=== PATIENT | female | born 1965 | race Hispanic/Latino ===

== ENCOUNTER 2021-10-20 14:38 | Observation (INO) | payer MEDICARE ==
[~2021-10-20] VITALS: Ht 157.5 cm; Wt 91.6 kg
[~2021-10-20 14:38] MED LIST: AMLODIPINE BESY10 MG PO; EFFEXOR XR75 MG PO; GABAPENTIN300 MG PO; GLIPIZIDE5 MG PO; KOMBIGLYZE XR1 EAC2 PO; LASIX20 MG PO; LEVEMIR100 UNIT/1 SQ; LIPITOR10 MG PO; LOSARTAN POTASS25 MG PO; LYRICA50 MG PO; METFORMIN HCL500 M2 PO; NORCO 10-325 T1 EACH PO; NORTRIPTYLINE H10 MG PO; PAIN COMPOUND; ULTRAM 50MG50 MG PO; VICTOZA 3-0.6 MG/0.1 INJ; ZOVIRAX400 MG
[2021-10-20 15:22] LABS: BASOPHILS % 0.2 % (0.0-1.0); EOSINOPHILS % 0.3 % (0.0-6.0); HEMATOCRIT 33.6 % (34.2-44.1); HEMOGLOBIN 10.4 g/dL (12.0-16.0); LYMPHOCYTES # (AUTO) 1.4 (1.0-3.2); LYMPHOCYTES % 13.1 % (18.0-39.1); MEAN CORPUSCULAR HEMOGLOBIN 30.1 pg (28-32); MEAN CORPUSCULAR VOLUME 97.4 fL (81-99); MONOCYTES # (AUTO) 0.4 (0.2-0.8); MONOCYTES % 3.5 % (4.4-11.3); NEUTROPHILS # (AUTO) 8.6 (2.1-6.9); NEUTROPHILS % 82.5 % (38.7-80.0); PLATELET COUNT 262 x10e3/uL (140-360); RED BLOOD COUNT 3.45 x10e6/uL (3.6-5.1); RED CELL DISTRIBUTION WIDTH 13.4 % (11.7-14.4)
[2021-10-20 15:26] LABS: CLARITY,URINE HAZY (CLEAR); COLOR,URINE BROWN (YELLOW)
[2021-10-20 15:27] LABS: KETONES,URINE TRACE (NEGATIVE); LEUKOCYTE ESTERASE ,URINE TRACE (NEGATIVE); NITRITE,URINE NEGATIVE (NEGATIVE); PROTEIN,URINE DIPSTICK >=300 (NEGATIVE); URINE UROBILINOGEN 1 mg/dL (0.2 - 1)
[2021-10-20 15:28] LABS: AMORPHOUS SEDIMENT,URINE FEW (FEW); BACTERIA,URINE MODERATE /HPF; EPITHELIAL CELLS,URINE FEW /LPF; MUCUS,URINE MODERATE (RARE); RBC,URINE >50 /HPF (0-5); WBC,URINE (MAN) 21-50 /HPF (0-5)
[2021-10-20 15:45] LABS: ALBUMIN 3.3 g/dL (3.5-5.0); ALBUMIN/GLOBULIN RATIO 0.7 (0.8-2.0); ANION GAP 14.3 mmol/L (8-16); CALCIUM 8.7 mg/dL (8.4-10.2); CREATININE, SERUM 2.68 mg/dL (0.57-1.11); POTASSIUM 5.3 mmol/L (3.5-5.1)
[2021-10-20] MEDS ORDERED: SODIUM CHLORIDE 0.9% 1000ML 1,000 ML IV STA (16:10)
[2021-10-20] MEDS ORDERED: CEFTRIAXONE 1 GM in SODIUM CHLORIDE 0.9% 50ML 50 ML IV ONE (16:15)
[2021-10-20] MEDS: SODIUM CHLORIDE 0.9% 1000ML 1,000 ML IV SCH ×2 (16:25→23:45)
[2021-10-20 17:36] VITALS: BP 163/57
[2021-10-20 17:39] VITALS: BP 163/57
[2021-10-20] MEDS ORDERED: HYDROCODONE/APAP 10MG-325MG TAB PO PRN (18:00)
[2021-10-20] MEDS ORDERED: TRAMADOL HCL 50 MG TAB PO PRN (18:00)
[2021-10-20] MEDS ORDERED: DEXTROSE 50% SYRINGE 50 ML IV PRN (18:00)
[2021-10-20] MEDS ORDERED: HYDRALAZINE HCL 20 MG/ML VIAL IV PRN (18:00)
[2021-10-20 18:22] VITALS: BP 163/57
[2021-10-20] MEDS ORDERED: NOVOLOG100 UNIT/1 SC ×2 (18:46→19:18)
[2021-10-20] MEDS ORDERED: BUPROPION XL150 MG PO (18:46)
[2021-10-20] MEDS ORDERED: BUMETANIDE1 MG PO (18:46)
[2021-10-20] MEDS ORDERED: METOPROLOL SUCC50 MG PO (18:46)
[2021-10-20] MEDS ORDERED: QUESTRAN PACKET4 GM PO (18:46)
[2021-10-20] MEDS ORDERED: SERTRALINE HCL100 MG PO (18:46)
[2021-10-20] MEDS ORDERED: HYDRALAZINE HCL25 MG PO (18:46)
[2021-10-20] MEDS ORDERED: SIMVASTATIN20 MG PO (18:46)
[2021-10-20] MEDS ORDERED: TRESIBA FL200 UNIT/1 SC (19:23)
[2021-10-20 20:00] VITALS: BP 140/52
[2021-10-20 20:01] VITALS: BP 140/52
[2021-10-20] MEDS ORDERED: ATORVASTATIN 10 MG TAB PO SCH (21:00)
[2021-10-20] MEDS: INSULIN LISPRO 100 UNIT/1 ML 3ML VIAL SQ SCH (21:00)
[2021-10-20] MEDS ORDERED: NORTRIPTYLINE HCL 10 MG CAP PO SCH (21:00)
[2021-10-20] MEDS ORDERED: INSULIN GLARGINE 100 UNITS/ML VIAL SQ SCH (21:00)
[2021-10-20] MEDS: CEFEPIME 1 GM in SODIUM CHLORIDE 0.9% 50ML 50 ML IV SCH (21:30)
[2021-10-21] VITALS: BP 148/52
[2021-10-21 04:00] VITALS: BP 148/54
[2021-10-21] MEDS: SODIUM CHLORIDE 0.9% 1000ML 1,000 ML IV SCH (06:02)
[2021-10-21 06:37] LABS: BASOPHILS % 0.4 % (0.0-1.0); EOSINOPHILS # (AUTO) 0.1 (0.0-0.4); EOSINOPHILS % 1.2 % (0.0-6.0); HEMATOCRIT 33.3 % (34.2-44.1); HEMOGLOBIN 10.2 g/dL (12.0-16.0); LYMPHOCYTES # (AUTO) 4.1 (1.0-3.2); LYMPHOCYTES % 37.3 % (18.0-39.1); MEAN CORPUSCULAR HEMOGLOBIN 30.3 pg (28-32); MEAN CORPUSCULAR HGB CONC 30.6 g/dL (31-35); MEAN CORPUSCULAR VOLUME 98.8 fL (81-99); MONOCYTES # (AUTO) 0.6 (0.2-0.8); MONOCYTES % 5.4 % (4.4-11.3); NEUTROPHILS % 55.2 % (38.7-80.0); PLATELET COUNT 253 x10e3/uL (140-360); RED BLOOD COUNT 3.37 x10e6/uL (3.6-5.1); RED CELL DISTRIBUTION WIDTH 13.2 % (11.7-14.4)
[2021-10-21 06:59] LABS: ANION GAP 11.4 mmol/L (8-16); CALCIUM 8.3 mg/dL (8.4-10.2); CREATININE, SERUM 1.68 mg/dL (0.57-1.11); POTASSIUM 4.4 mmol/L (3.5-5.1)
[2021-10-21 07:23] LABS: % IRON SATURATION 15 % (15-50); IRON 41 ug/dL (50-170); TOTAL IRON BINDING CAPACITY 266 ug/dL (261-478); TRANSFERRIN 190 mg/dL (180-382)
[2021-10-21] MEDS: INSULIN LISPRO 100 UNIT/1 ML 3ML VIAL SQ SCH ×4 (07:30→11:30)
[2021-10-21 07:59] VITALS: BP 174/51
[2021-10-21 08:09] VITALS: BP 174/51
[2021-10-21] MEDS: CEFEPIME 1 GM in SODIUM CHLORIDE 0.9% 50ML 50 ML IV SCH (08:32)
[2021-10-21] MEDS ORDERED: AMLODIPINE BESYLATE 10 MG TAB PO SCH (09:00)
[2021-10-21] MEDS ORDERED: MYSOLINE50 MG PO (09:49)
[2021-10-21] MEDS ORDERED: ACETAMINOPHEN PO (09:49)
[2021-10-21] MEDS ORDERED: METRONIDAZOLE CREAM TOP (09:49)
[2021-10-21] MEDS ORDERED: MYRBETRIQ25 MG PO (09:49)
[2021-10-21] MEDS ORDERED: TRULICITY3 MG/0.5 M SC (09:49)
[2021-10-21] MEDS ORDERED: PREDNISONE10 MG PO (09:52)
[2021-10-21 11:48] VITALS: BP 151/50
== END 2021-10-21 14:00 | disposition home or self-care (01) ==
LOC: ER 14:58 → ERHOLD 16:10 → MED/SURG3 17:03 → INTOOBSV 18:01 → OBSVTOIN 18:01
PROVIDERS: ADMIT Internal Medicine; ATTEND Internal Medicine
DX: T83.83XA Hemorrhage due to genitourinary prosthetic devices, implants and grafts, initial encounter (principal); N17.9 Acute kidney failure, unspecified; N39.0 Urinary tract infection, site not specified; R31.9 Hematuria, unspecified; R33.9 Retention of urine, unspecified; I12.9 Hypertensive chronic kidney disease with stage 1 through stage 4 chronic kidney disease, or unspecified chronic kidney disease; N18.30 Chronic kidney disease, stage 3 unspecified; E83.51 Hypocalcemia; D64.9 Anemia, unspecified; E66.9 Obesity, unspecified; Z68.36 Body mass index [BMI] 36.0-36.9, adult; Z79.899 Other long term (current) drug therapy; E78.5 Hyperlipidemia, unspecified; E11.40 Type 2 diabetes mellitus with diabetic neuropathy, unspecified; M10.9 Gout, unspecified; R31.0 Gross hematuria; Z20.822 Contact with and (suspected) exposure to COVID-19
CPT/HCPCS: 36415 ×2; 74176; 80048; 80053; 81001; 82270; 82607; 82746; 82948 ×2; 83036; 83540; 84466; 85025 ×2; 87086; 87186; 94799 ×2; 99284; G0378 ×2; J0692 ×2; J0696; J1815; J7030 ×2; U0002

== ENCOUNTER 2022-11-25 13:44 | Emergency (ER) | payer MEDICARE ==
[~2022-11-25] VITALS: Ht 157.5 cm; Wt 102.1 kg
[~2022-11-25 13:44] MED LIST changes: +ACETAMINOPHEN PO; +BUMETANIDE1 MG PO; +BUPROPION XL150 MG PO; +HYDRALAZINE HCL25 MG PO; +METOPROLOL SUCC50 MG PO; +METRONIDAZOLE CREAM TOP; +MYRBETRIQ25 MG PO; +MYSOLINE50 MG PO; +NOVOLOG100 UNIT/1 SC; +PREDNISONE10 MG PO; +QUESTRAN PACKET4 GM PO; +SERTRALINE HCL100 MG PO; +SIMVASTATIN20 MG PO; +TRESIBA FL200 UNIT/1 SC; +TRULICITY3 MG/0.5 M SC
[2022-11-25 14:33] LABS: BASOPHILS % 0.4 % (0.0-1.0); EOSINOPHILS # (AUTO) 0.2 (0.0-0.4); EOSINOPHILS % 1.9 % (0.0-6.0); HEMATOCRIT 30.3 % (34.2-44.1); HEMOGLOBIN 9.7 g/dL (12.0-16.0); LYMPHOCYTES # (AUTO) 1.9 (1.0-3.2); LYMPHOCYTES % 16.3 % (18.0-39.1); MEAN CORPUSCULAR HEMOGLOBIN 30.8 pg (28-32); MEAN CORPUSCULAR VOLUME 96.2 fL (81-99); MONOCYTES # (AUTO) 0.4 (0.2-0.8); MONOCYTES % 3.7 % (4.4-11.3); NEUTROPHILS # (AUTO) 8.8 (2.1-6.9); NEUTROPHILS % 77.1 % (38.7-80.0); PLATELET COUNT 181 x10e3/uL (140-360); RED BLOOD COUNT 3.15 x10e6/uL (3.6-5.1); RED CELL DISTRIBUTION WIDTH 14.9 % (11.7-14.4)
[2022-11-25 14:44] LABS: INR 0.78; PROTHROMBIN TIME 11.4 seconds (11.9-14.5)
[2022-11-25 14:45] LABS: PARTIAL THROMBOPLASTIN TIME 26.3 seconds (23.8-35.5)
[2022-11-25 14:52] LABS: ALANINE AMINOTRANSFERASE 23 IU/L (0-55); ALBUMIN 3.1 g/dL (3.5-5.0); ALBUMIN/GLOBULIN RATIO 0.7 (0.8-2.0); ALKALINE PHOSPHATASE 77 IU/L (40-150); ANION GAP 15.9 mmol/L (8-16); BLOOD UREA NITROGEN 68 mg/dL (7-26); BUN/CREATININE RATIO 35 (6-25); CALCIUM 8.6 mg/dL (8.4-10.2); CARBON DIOXIDE 23 mmol/L (22-29); CHLORIDE 99 mmol/L (98-107); CREATININE, SERUM 1.97 mg/dL (0.57-1.11); GLUCOSE 384 mg/dL (74-118); MAGNESIUM 1.7 MG/DL (1.3-2.1); POTASSIUM 4.9 mmol/L (3.5-5.1); SODIUM 133 mmol/L (136-145)
[2022-11-25 15:48] LABS: CLARITY,URINE SL CLOUDY (CLEAR); COLOR,URINE YELLOW (YELLOW); KETONES,URINE NEGATIVE (NEGATIVE); LEUKOCYTE ESTERASE ,URINE NEGATIVE (NEGATIVE); NITRITE,URINE NEGATIVE (NEGATIVE); PROTEIN,URINE DIPSTICK NEGATIVE (NEGATIVE); URINE UROBILINOGEN 0.2 mg/dL (0.2 - 1)
[2022-11-25 16:10] LABS: BACTERIA,URINE MODERATE /HPF; EPITHELIAL CELLS,URINE FEW /LPF; HYALINE CASTS 0-1 (0-1); WBC,URINE (MAN) 0-5 /HPF (0-5)
[2022-11-25 17:37] VITALS: BP 129/55; PULSE 84; RESP 16; TEMP 98.7; O2SAT 97
== END 2022-11-25 17:17 | disposition home or self-care (01) ==
LOC: MERGE 14:13 → ER 14:13
DX: M79.661 Pain in right lower leg (principal); R60.9 Edema, unspecified; I12.0 Hypertensive chronic kidney disease with stage 5 chronic kidney disease or end stage renal disease; E11.22 Type 2 diabetes mellitus with diabetic chronic kidney disease; E11.65 Type 2 diabetes mellitus with hyperglycemia; N18.6 End stage renal disease; Z99.2 Dependence on renal dialysis
CPT/HCPCS: 36415; 71045; 80053; 81001; 83735; 83880; 84484; 85025; 85610; 85730; 87086; 93971; 99284

== ENCOUNTER 2024-02-11 19:34 | Emergency (ER) | payer MEDICARE ==
[~2024-02-11] VITALS: Ht 167.6 cm; Wt 86.2 kg
[2024-02-11] MEDS: ACETAMINOPHEN 325 MG TAB PO ONE (20:21)
[2024-02-11 20:28] LABS: BASOPHILS % 0.3 % (0.0-1.0); EOSINOPHILS # (AUTO) 0.1 (0.0-0.4); EOSINOPHILS % 1.2 % (0.0-6.0); HEMATOCRIT 35.1 % (34.2-44.1); HEMOGLOBIN 11.2 g/dL (12.0-16.0); LYMPHOCYTES # (AUTO) 2.8 (1.0-3.2); LYMPHOCYTES % 29.5 % (18.0-39.1); MEAN CORPUSCULAR HEMOGLOBIN 31.1 pg (28-32); MEAN CORPUSCULAR HGB CONC 31.9 g/dL (31-35); MEAN CORPUSCULAR VOLUME 97.5 fL (81-99); MONOCYTES # (AUTO) 0.7 (0.2-0.8); MONOCYTES % 7.7 % (4.4-11.3); NEUTROPHILS # (AUTO) 5.9 (2.1-6.9); PLATELET COUNT 148 x10e3/uL (140-360); WHITE BLOOD COUNT 9.64 x10e3/uL (4.8-10.8)
[2024-02-11 20:46] LABS: ALBUMIN 3.5 g/dL (3.5-5.0); ALBUMIN/GLOBULIN RATIO 0.8 (0.8-2.0); ANION GAP 14.1 mmol/L (8-16); BILIRUBIN,TOTAL 0.2 mg/dL (0.2-1.2); CALCIUM 9.2 mg/dL (8.4-10.2); CREATININE, SERUM 1.92 mg/dL (0.57-1.11); POTASSIUM 5.1 mmol/L (3.5-5.1); TOTAL PROTEIN 7.7 g/dL (6.5-8.1)
[2024-02-11 20:48] LABS: INFLUENZAE A&B ANTIGEN (RAPID) NEGATIVE (NEGATIVE); RESPIRATORY SYNC. VIRUS NEGATIVE (NEGATIVE)
[2024-02-11 21:00] LABS: BILIRUBIN,URINE NEGATIVE (NEGATIVE); CLARITY,URINE SL CLOUDY (CLEAR); COLOR,URINE YELLOW (YELLOW); GLUCOSE, URINE NEGATIVE (NEGATIVE); KETONES,URINE NEGATIVE (NEGATIVE); LEUKOCYTE ESTERASE ,URINE TRACE (NEGATIVE); NITRITE,URINE NEGATIVE (NEGATIVE); PH,URINE 5.5 (5 - 7); PROTEIN,URINE DIPSTICK 1+ (NEGATIVE); URINE UROBILINOGEN 0.2 mg/dL (0.2 - 1)
[2024-02-11] MEDS: SODIUM CHLORIDE 0.9% 1000ML 1,000 ML IV SCH (21:01)
[2024-02-11 21:15] LABS: BACTERIA,URINE RARE /HPF; EPITHELIAL CELLS,URINE FEW /LPF; RBC,URINE 0-5 /HPF (0-5); WBC,URINE (MAN) 0-5 /HPF (0-5)
[2024-02-11 22:00] VITALS: PULSE 94; RESP 20; TEMP 98.5
[2024-02-11 22:35] VITALS: BP 106/66; PULSE 85; RESP 22; TEMP 98.5; O2SAT 96
== END 2024-02-11 22:34 | disposition home or self-care (01) ==
LOC: ER 19:40
DX: R50.9 Fever, unspecified (principal); U07.1 COVID-19; R53.1 Weakness; I12.0 Hypertensive chronic kidney disease with stage 5 chronic kidney disease or end stage renal disease; E11.22 Type 2 diabetes mellitus with diabetic chronic kidney disease; N18.6 End stage renal disease; K76.9 Liver disease, unspecified; M54.9 Dorsalgia, unspecified; G89.29 Other chronic pain; M19.09 Primary osteoarthritis, other specified site
CPT/HCPCS: 36415; 71045; 80053; 81001; 83605; 85025; 87040; 87086; 87400; 87420; 99284; J0696; J7030; U0002

== ENCOUNTER 2025-03-22 14:12 | Inpatient (IN) | payer MEDICARE ==
[~2025-03-22] VITALS: Ht 157.5 cm; Wt 79.4 kg
[2025-03-22 16:10] LABS: BASOPHILS % 0.4 % (0.0-1.0); EOSINOPHILS % 4.7 % (0.0-6.0); LYMPHOCYTES % 30.7 % (18.0-39.1); MONOCYTES % 5.4 % (4.4-11.3); NEUTROPHILS % 58.5 % (38.7-80.0); RED CELL DISTRIBUTION WIDTH 13.9 % (11.7-14.4)
[2025-03-22 16:12] LABS: EST GLOMERULAR FILTRATION RATE 24.0 ML/MIN (>=60)
[2025-03-22] MEDS: NIFEDIPINE CR 30 MG TAB PO SCH (17:04)
[2025-03-22] MEDS: ASPIRIN 81 MG CHEW TAB PO ONE (17:56)
[2025-03-22] MEDS: HYDRALAZINE HCL 20 MG/ML VIAL IV PRN (18:12)
[2025-03-22 19:14] VITALS: PULSE 79; RESP 24; TEMP 98
[2025-03-22 20:05] VITALS: PULSE 74; RESP 16; O2SAT 98
[2025-03-22 20:15] VITALS: BP 197/61; PULSE 75; RESP 18; TEMP 97; O2SAT 99
[2025-03-22] MEDS ORDERED: MOUNJARO5 MG/0.5 M SC (21:01)
[2025-03-22] MEDS ORDERED: JARDIANCE10 MG PO (21:01)
[2025-03-22] MEDS ORDERED: GEMTESA75 MG PO (21:01)
[2025-03-22] MEDS ORDERED: ESTRACE42.5 GM VG (21:01)
[2025-03-22] MEDS ORDERED: OMEPRAZOLE40 MG PO (21:01)
[2025-03-22] MEDS ORDERED: HYDRALAZINE HCL50 MG PO (21:01)
[2025-03-22] MEDS ORDERED: TRESIBA FL200 UNIT/1 SC (21:15)
[2025-03-22] MEDS ORDERED: VASCEPA0.5 GM PO (21:15)
[2025-03-22] MEDS ORDERED: METOPROLOL SUCC50 MG PO (21:15)
[2025-03-22] MEDS ORDERED: ALLOPURINOL100 MG PO (21:15)
[2025-03-22] MEDS ORDERED: ELIQUIS5 MG PO (21:15)
[2025-03-22] MEDS ORDERED: NEURONTIN300 MG PO (21:15)
[2025-03-22] MEDS ORDERED: METOLAZONE5 MG PO (21:15)
[2025-03-22] MEDS ORDERED: MONTELUKAST SOD10 MG PO (21:15)
[2025-03-22] MEDS ORDERED: MINOXIDIL2.5 MG PO (21:15)
[2025-03-22] MEDS ORDERED: NOVOLOG100 UNIT/1 SC (21:15)
[2025-03-22] MEDS ORDERED: TOPIRAMATE25 MG PO (21:15)
[2025-03-22] MEDS ORDERED: FLAGYL TOP (21:15)
[2025-03-22] MEDS: INSULIN GLARGINE 100 UNITS/ML VIAL SQ SCH (21:45)
[2025-03-22] MEDS ORDERED: DEXTROSE 50% SYRINGE 50 ML IV PRN (21:45)
[2025-03-22] MEDS: ACETAMINOPHEN 325 MG TAB PO PRN (21:56)
[2025-03-22] MEDS: APIXABAN 5 MG TABLET PO SCH (23:00)
[2025-03-22 23:10] VITALS: BP 183/46; PULSE 90; RESP 18; TEMP 98.1; O2SAT 100
[2025-03-22] MEDS: Morphine 2mg Syringe 2 MG/ML SYR IV PRN (23:28)
[2025-03-23] VITALS (8 sets, daily range): BP systolic 148–198; BP diastolic 46–68; PULSE 67–77; RESP 16–20; TEMP 97.6–98.5; O2SAT 97–100
[2025-03-23 07:03] LABS: BASOPHILS % 0.3 % (0.0-1.0); EOSINOPHILS % 4.7 % (0.0-6.0); LYMPHOCYTES % 34.9 % (18.0-39.1); MONOCYTES % 6.0 % (4.4-11.3); NEUTROPHILS % 54.0 % (38.7-80.0); RED CELL DISTRIBUTION WIDTH 13.9 % (11.7-14.4)
[2025-03-23 07:25] LABS: EST GLOMERULAR FILTRATION RATE 27.0 ML/MIN (>=60)
[2025-03-23] MEDS: INSULIN LISPRO 100 UNIT/1 ML 3ML VIAL SQ SCH (07:30)
[2025-03-23] MEDS ORDERED: INSULIN GLARGINE 100 UNITS/ML VIAL SQ SCH (09:15)
[2025-03-23] MEDS: HYDRALAZINE HCL 25 MG TAB PO SCH (09:55)
[2025-03-23] MEDS: PANTOPRAZOLE SOD 40 MG TABEC PO SCH (09:57)
[2025-03-23] MEDS: BUPROPION HCL 150 MG TABCR PO SCH (09:57)
[2025-03-23] MEDS: LOSARTAN POTASSIUM 25 MG TAB PO SCH (09:57)
[2025-03-23] MEDS: METOPROLOL SUCCINATE 50 MG TAB XL PO SCH (09:57)
[2025-03-23] MEDS: PRIMIDONE 50 MG TAB PO SCH (09:58)
[2025-03-23] MEDS: SERTRALINE HCL 100 MG TAB PO SCH (09:58)
[2025-03-23] MEDS: ALLOPURINOL 100 MG TAB PO SCH (09:58)
[2025-03-23] MEDS: TOPIRAMATE 25 MG TAB PO SCH (09:58)
[2025-03-23] MEDS: SODIUM CHLORIDE 0.9% 1000ML 1,000 ML IV ONE (09:59)
[2025-03-23 11:20] LABS: % IRON SATURATION 21.0 % (15-50)
[2025-03-23] MEDS: MONTELUKAST SODIUM 10 MG TAB PO SCH (21:25)
[2025-03-23] MEDS: SIMVASTATIN 20 MG TAB PO SCH (21:25)
[2025-03-24 03:35] VITALS: BP 162/74; PULSE 69; RESP 18; TEMP 98.2; O2SAT 97
[2025-03-24 08:00] VITALS: BP 176/67; PULSE 68; RESP 17; TEMP 98; O2SAT 97
[2025-03-24 08:56] VITALS: BP 176/67; PULSE 68; RESP 17; TEMP 98; O2SAT 97
[2025-03-24] MEDS: LOSARTAN POTASSIUM 100 MG TAB PO SCH (09:08)
[2025-03-24] MEDS: NIFEDIPINE CR 30 MG TAB PO SCH (09:08)
[2025-03-24 09:09] LABS: RED CELL DISTRIBUTION WIDTH 14.0 % (11.7-14.4)
[2025-03-24] MEDS ORDERED: NIFEDIPINE ER30 M1 PO (09:31)
[2025-03-24 09:43] LABS: EST GLOMERULAR FILTRATION RATE 28.0 ML/MIN (>=60)
[2025-03-24 11:52] LABS: EOSINOPHILS % (MANUAL) 5 % (0-7); LYMPHOCYTES % (MANUAL) 31 % (19-48); MONOCYTES % (MANUAL) 2 % (3.4-9.0); NEUTROPHILS % (MANUAL) 62 % (40-74); PLATELET ESTIMATE ADEQUATE; PLATELET MORPHOLOGY COMMENT NORMAL
[2025-03-24 12:00] VITALS: BP 184/60; PULSE 67; RESP 18; TEMP 97.9; O2SAT 100
== END 2025-03-24 14:09 | disposition home or self-care (01) | DRG 305 ==
LOC: ER 14:20 → ERHOLD 16:53 → MED/SURG3 20:33 → OBSVTOIN 03-23 11:18
PROVIDERS: ADMIT Internal Medicine; ATTEND Internal Medicine
DX: I16.1 Hypertensive emergency (principal); N17.9 Acute kidney failure, unspecified; I16.0 Hypertensive urgency; E11.22 Type 2 diabetes mellitus with diabetic chronic kidney disease; I12.9 Hypertensive chronic kidney disease with stage 1 through stage 4 chronic kidney disease, or unspecified chronic kidney disease; N18.32 Chronic kidney disease, stage 3b; D63.1 Anemia in chronic kidney disease; D50.9 Iron deficiency anemia, unspecified; I48.0 Paroxysmal atrial fibrillation; M19.90 Unspecified osteoarthritis, unspecified site; R01.1 Cardiac murmur, unspecified; M54.9 Dorsalgia, unspecified; E66.9 Obesity, unspecified; Z68.32 Body mass index [BMI] 32.0-32.9, adult; Z79.01 Long term (current) use of anticoagulants; Z79.4 Long term (current) use of insulin; Z79.85 Long-term (current) use of injectable non-insulin antidiabetic drugs; Z90.49 Acquired absence of other specified parts of digestive tract; Z88.8 Allergy status to other drugs, medicaments and biological substances; Z87.891 Personal history of nicotine dependence; Z79.52 Long term (current) use of systemic steroids
CPT/HCPCS: 36415; 70450; 71045; 80048; 80053; 82550; 82607; 82728; 82746; 82948; 83036; 83540; 83690; 84466; 84484; 85007; 85025; 85027; 85045; 93005; 93306; 94799; 99284; G0378; J0360; J2270; J2470; J7030